=== PATIENT | male | born 1995 | race Caucasian/White ===

== ENCOUNTER 2023-11-05 08:28 | Emergency (ER) | payer OTHER ==
[~2023-11-05] VITALS: Ht 160 cm; Wt 69.4 kg
[~2023-11-05 08:28] MED LIST: ADHD; AUGMENTIN ES-6050 ML PO; AUGMENTIN ES-6100 ML PO; CLARITIN5 MG/5 ML PO; FLOMAX0.4 MG PO; KETOROLAC10 MG PO; MOTRIN800 MG PO; NORCO 5-325 TA1 EACH PO; ZITHROMAX250 MG PO; ZOFRAN ODT4 MG SL
[2023-11-05 09:04] VITALS: BP 141/81
[2023-11-05 09:15] LABS: BILIRUBIN Negative (Negative); BLOOD 3+ (Negative); CLARITY Clear (Clear); COLOR Yellow (Yellow); GLUCOSE Negative (Negative); KETONE Negative (Negative); LEUKO ESTERASE Negative (Negative); NITRITE Negative (Negative); PH 6.5 (4.5-8.0)
[2023-11-05 09:25] LABS: BACTERIA TRACE; EPITHELIAL CELLS 0-2; MUCOUS 1+; RBC TNTC rbc/hpf (0-2); WBC 0-2 wbc/hpf (0-5)
[2023-11-05] MEDS ORDERED: FLOMAX0.4 MG PO (10:50)
== END 2023-11-05 10:48 | disposition home or self-care (01) ==
LOC: ED 08:28
PROVIDERS: Internal Medicine
DX: N20.0 Calculus of kidney (principal); R11.2 Nausea with vomiting, unspecified; Z98.890 Other specified postprocedural states; Z87.442 Personal history of urinary calculi